=== PATIENT | female | born 1930 | race Caucasian/White ===

== ENCOUNTER 2018-04-07 13:52 | Outpatient (CLI) | payer MEDICARE ==
--- NOTE | 2018-04-07 15:40 | RAD ---
THORACIC SPINE THREE VIEWS: 04/07/18 HISTORY: 87-year-old female with history of thoracic fracture. 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 Status post vertebroplasty at what amrita ears to be T12. IMPRESSION: Status post vertebroplasty changes of T12. Bone demineralization. Generalized spondylosis. POS: [facility]
--- NOTE | 2018-04-07 15:47 | RAD ---
3 VIEWS LUMBOSACRAL SPINE: Date: 04/07/18 COMPARISON: Thoracic spine radiograph dated 07/09/12. HISTORY: Follow-up fracture. FINDINGS: Three views of the lumbosacral spine show normal height and alignment of the lumbar vertebral bodies without fracture or subluxation. There are moderate degenerative changes throughout the lumbar spine. Vertebroplasty cement is within the T12 vertebral body which demonstrates approximately 10% height l oss. IMPRESSION: Status post vertebroplasty of T12 which demonstrates approximately 10% height loss. POS: [facility]
== END 2018-04-07 13:53 | disposition home or self-care (01) ==
LOC: TBSIIMAG 13:52
PROVIDERS: ATTEND Surgery
DX: S22.019A Unspecified fracture of first thoracic vertebra, initial encounter for closed fracture (principal); M47.894 Other spondylosis, thoracic region; Z98.890 Other specified postprocedural states
CPT/HCPCS: 72072; 72100